=== PATIENT | female | born 1970 | race Caucasian/White ===

== ENCOUNTER → 2016-04-30 | Outpatient (REF) | payer BC ==
[~2016-04-30] MED LIST: CIPR500T89 PO; HCTZ PO; LABE20TAB PO; PRIL40CA PO; VICO5TAB PO
[2016-04-30 12:20] LABS: ALBUMIN 3.4 GM/DL (3.2-5.2); ALBUMIN/GLOBULIN RATIO 1.03 (1.00-1.93); ALKALINE PHOSPHATASE 122 U/L (45-117); ALT/SGPT 34 U/L (12-78); ANION GAP 9 MEQ/L (8-16); AST/SGOT 12 U/L (15-37); BILIRUBIN,TOTAL 0.4 MG/DL (0.2-1.0); BLOOD UREA NITROGEN 11 MG/DL (7-18); CALCIUM LEVEL 9.1 MG/DL (8.5-10.1); CARBON DIOXIDE LEVEL 30 MEQ/L (21-32); CHLORIDE LEVEL 103 MEQ/L (98-107); CHOLESTEROL LEVEL 161 MG/DL (<200); CREATININE FOR GFR 0.71 MG/DL (0.55-1.02); FREE T4 1.15 NG/DL (0.76-1.46); GLOMERULAR FILTRATION RATE > 60.0 (>58); GLUCOSE, FASTING 100 MG/DL (70-105); POTASSIUM SERUM 3.6 MEQ/L (3.5-5.1); SODIUM LEVEL 142 MEQ/L (136-145); TOTAL PROTEIN 6.7 GM/DL (6.4-8.2); TRIGLYCERIDES LEVEL 101 MG/DL (<150)
[2016-04-30 12:45] LABS: BASO % 0.3 % (0.0-1.0); EOS # 0.2 K/mm3 (0.0-0.50); LARGE UNSTAINED CELL # 0.3 K/mm3 (0.0-0.4); LARGE UNSTAINED CELL % 2.3 % (0.0-4.0); LYMPH # 2.9 K/mm3 (1.5-4.5); LYMPH % 24.2 % (24.0-44.0); MEAN CORPUSCULAR HEMOGLOBIN 28.8 pg (27.0-33.0); MEAN CORPUSCULAR HGB CONC 33.7 g/dl (32.0-36.5); MEAN CORPUSCULAR VOLUME 85.4 fl (80.0-96.0); MONO # 0.7 K/mm3 (0.0-0.8); MONO % 5.7 % (0.0-5.0); NEUTROPHILS # 7.7 K/mm3 (1.8-7.7); NEUTROPHILS % 65.4 % (36.0-66.0); PLATELET COUNT, AUTOMATED 370 k/mm3 (150-450); WHITE BLOOD COUNT 11.8 K/mm3 (4.0-10.0)
== END ==
LOC: M LABDRAW1 11:33
PROVIDERS: ATTEND Emergency Medicine
DX: I10 Essential (primary) hypertension (principal); E05.90 Thyrotoxicosis, unspecified without thyrotoxic crisis or storm; E78.5 Hyperlipidemia, unspecified

== ENCOUNTER → 2017-04-19 | Outpatient (REF) | payer BC ==
[2017-04-19 13:22] LABS: FREE T4 1.29 NG/DL (0.76-1.46)
[2017-04-20 12:18] LABS: THYROID PEROXIDASE ANTIBODY 33.3 U/ML (<60.0)
== END ==
LOC: M LABDRAW1 10:48
DX: R94.6 Abnormal results of thyroid function studies (principal)
CPT/HCPCS: 84439

== ENCOUNTER → 2017-05-04 | Outpatient (CLI) | payer BC | LOC: M RAD 08:18 | DX: R94.6 Abnormal results of thyroid function studies (principal) | CPT/HCPCS: 78012 ==

== ENCOUNTER 2020-09-27 10:40 | Emergency (ER) | payer BC ==
[~2020-09-27] VITALS: Ht 160 cm; Wt 106.8 kg
[~2020-09-27 10:40] MED LIST changes: -HCTZ PO; +LABE200T13 PO; -LABE20TAB PO; +[UNRECOGNIZED DRUG - CODE] PO; +medroxyPROGESTERone 5MG TABLET PO SCH
[2020-09-27] MEDS ORDERED: ATOR1TAB19 (10:52)
[2020-09-27] MEDS ORDERED: ATEN50TA9 (10:52)
[2020-09-27] MEDS ORDERED: SPIR-10 (10:52)
[2020-09-27 11:24] LABS: BASO # 0.1 10^3/uL (0.0-0.2); BASO % 0.3 % (0.0-1.0); EOS # 0.2 10^3/uL (0.0-0.5); EOS % 1.6 % (0.0-3.0); HEMATOCRIT 29.9 % (36.0-47.0); HEMOGLOBIN 9.7 g/dl (12.0-15.5); LYMPH # 3.2 10^3/uL (1.5-5.0); LYMPH % 21.7 % (24.0-44.0); MEAN CORPUSCULAR HEMOGLOBIN 26.9 pg (27.0-33.0); MEAN CORPUSCULAR HGB CONC 32.4 g/dl (32.0-36.5); MEAN CORPUSCULAR VOLUME 82.8 fl (80.0-96.0); MONO # 1.2 10^3/uL (0.0-0.8); MONO % 8.3 % (2.0-8.0); NEUTROPHILS # 9.9 10^3/uL (1.5-8.5); NEUTROPHILS % 67.6 % (36.0-66.0); PLATELET COUNT, AUTOMATED 407 10^3/uL (150-450); RED BLOOD COUNT 3.61 10^6/uL (4.00-5.40); WHITE BLOOD COUNT 14.7 10^3/uL (4.0-10.0)
[2020-09-27 11:53] LABS: BLOOD UREA NITROGEN 12 MG/DL (7-18); CALCIUM LEVEL 8.7 MG/DL (8.5-10.1); CARBON DIOXIDE LEVEL 31 MEQ/L (21-32); CHLORIDE LEVEL 104 MEQ/L (98-107); CK-MB VALUE MASS 1.3 NG/ML (<3.6); CPK CREATINE PHOSPHOKINASE 35 U/L (26-192); GLOMERULAR FILTRATION RATE > 60.0 (>58); GLUCOSE, FASTING 110 MG/DL (70-100); MB/CK RELATIVE INDEX 3.71 (< OR =4); POTASSIUM SERUM 3.6 MEQ/L (3.5-5.1); SODIUM LEVEL 139 MEQ/L (136-145); TROPONIN I < 0.02 NG/ML (< 0.10)
[2020-09-27 13:01] LABS: HCG, SERUM QUALITATIVE NEGATIVE (NEGATIVE)
[2020-09-27] MEDS ORDERED: NS 1,000 ML IV ONE (13:20)
--- NOTE | 2020-09-27 13:44 | REP ---
INDICATION: severe bleeding, passing large clots. COMPARISON: CT 01/10/2012 TECHNIQUE: Transabdominal endovaginal probes with grayscale and color Doppler interrogation. Technologist notes indicate the exam was technically very challenging due to body habitus considerations. FINDINGS: The bladder is under filled for this examination measuring only 3 x 2.1 by 5.2 cm. Uterus is anteverted measuring 7.4 x 5.1 x 6.3 cm. There is a prominent hypoechoic uterine mass 4.5 x 4.3 x 3.4 cm that appears to be subserosal displacing the endometrium or within the endometrium near the fundus and upper body of the uterus. There is another hypoechoic focus in the fundus of the uterus suggesting a fibroid at 2.1 x 1.9 x 1.7 cm. No other discrete uterine abnormality. There is no fluid in the cul-de-sac. The right ovary is 3.2 x 2.4 x 2.4 cm. It has a 1.9 x 1.8 x 1.7 cm dominant follicle (cyst defined at 2.5 cm). Doppler tracing shows resistive index 0.49 with normal color flow. The left ovary is 3.9 x 2.6 x 2.6 cm. It has a dominant follicle about 1.6 cm in greatest diameter. Doppler tracing shows resistive index 0.61 with normal color Doppler flow. No free fluid adjacent to either ovary. IMPRESSION: 1. A large 4.5 x 3.4 x 4.3 cm hypoechoic mass either subserosal fibroid or endometrial lesion distorting/displacing the endometrial stripe in the body and fundus of the uterus. Another smaller hypoechoic focus 2.1 x 1.9 cm seen in the fundus. No definite fluid at this time in the endometrial cavity. 2. Right ovary with dominant follicle 1.9 x 1.8 cm with normal blood flow and no evidence for torsion. 3. Left ovary with a 1.6 cm dominant follicle and normal Doppler tracing, no evidence for torsion. 4. No pelvic free fluid. <Electronically signed by Manish Glasgow > 09/27/20 [id number]
[2020-09-27] MEDS ORDERED: ACETAMINOPHEN 500 MG TAB PO ONE (14:15)
[2020-09-27] MEDS ORDERED: PROV10TA PO (14:49)
[2020-09-27] MEDS ORDERED: FERR325T3 PO (14:49)
[2020-09-27 14:50] VITALS: BP 126/63
--- NOTE | 2020-09-28 22:00 | ECGEPIP ---
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 Order Number: [id number] Reading MD: Ely Subramanian Measurements Intervals Stark Rate: 71 P: 27 AL: 148 QRS: 16 QRSD: 88 T: 27 QT: 438 QTc: 475 Interpretive Statements Normal sinus rhythm NSTTW abnormalities No prior Electronically Signed on 09-28-2020 21:59:41 EDT by Ely Subramanian
== END 2020-09-27 15:39 | disposition home or self-care (01) ==
LOC: M ED 10:40
DX: N93.8 Other specified abnormal uterine and vaginal bleeding (principal); D25.9 Leiomyoma of uterus, unspecified; D64.9 Anemia, unspecified; I10 Essential (primary) hypertension; E78.5 Hyperlipidemia, unspecified; Z87.59 Personal history of other complications of pregnancy, childbirth and the puerperium; Z88.2 Allergy status to sulfonamides; Z88.5 Allergy status to narcotic agent; Z88.7 Allergy status to serum and vaccine

== ENCOUNTER → 2020-11-18 | Outpatient (REF) | payer BC ==
[~2020-11-18] MED LIST changes: +ATEN50TA9; +ATOR1TAB19; +FERR325T3 PO; +PROV10TA PO; +SPIR-10; -medroxyPROGESTERone 5MG TABLET PO SCH
== END ==
LOC: M SFHCWAGY 10:10
PROVIDERS: ATTEND Obstetrics & Gynecology
DX: N93.9 Abnormal uterine and vaginal bleeding, unspecified (principal)

== ENCOUNTER → 2020-12-03 | Outpatient (CLI) | payer BC ==
[~2020-12-03] MED LIST changes: -ATEN50TA9; +ATEN50TA9 PO; -ATOR1TAB19; +ATOR1TAB19 PO; +IBUP200C28 PO; -SPIR-10; +SPIR-10 PO
== END ==
LOC: M LABSMTC 09:33
PROVIDERS: ATTEND Anesthesiology
DX: Z01.818 Encounter for other preprocedural examination (principal); Z11.52 Encounter for screening for COVID-19

== ENCOUNTER 2020-12-08 07:44 | Day surgery (SDC) | payer BC ==
[~2020-12-08] VITALS: Ht 157.5 cm; Wt 105.5 kg
[~2020-12-08 07:44] MED LIST changes: +LR 1,000 ML IV ONE; +ceFAZolin SOD 1 GM in D5W MINI-BAG PLUS 50 ML IV ONE
[2020-12-08 08:49] LABS: MEAN CORPUSCULAR HEMOGLOBIN 26.1 pg (27.0-33.0); MEAN CORPUSCULAR HGB CONC 32.4 g/dl (32.0-36.5); MEAN CORPUSCULAR VOLUME 80.6 fl (80.0-96.0); PLATELET COUNT, AUTOMATED 350 10^3/uL (150-450); RED BLOOD COUNT 4.59 10^6/uL (4.00-5.40); WHITE BLOOD COUNT 9.2 10^3/uL (4.0-10.0)
[2020-12-08 09:14] LABS: HCG, SERUM QUALITATIVE NEGATIVE (NEGATIVE)
[2020-12-08] MEDS ORDERED: LIDOCAINE 2% 100MG/5ML SDV (FOR ANES.) As Ordered ONE (09:36)
[2020-12-08] MEDS ORDERED: fentaNYL 100 MCG/2 ML INJECTION (J3010) As Ordered ONE (09:36)
[2020-12-08] MEDS ORDERED: ROCURONIUM BROMIDE 50 MG/5 ML VIAL As Ordered ONE ×2 (09:36→11:58)
[2020-12-08] MEDS ORDERED: METOCLOPRAMIDE INJ 10MG/2ML VIAL (J2765 PER 1) As Ordered ONE (09:36)
[2020-12-08] MEDS ORDERED: ONDANSETRON 4MG/2ML VIAL As Ordered ONE (09:36)
[2020-12-08] MEDS ORDERED: propofoL 200 MG/20 ML VIAL As Ordered ONE (09:36)
[2020-12-08] MEDS ORDERED: dexameTHASONE 4 MG/ML 1ML VIAL (J1100 PER 1MG) As Ordered ONE (09:36)
[2020-12-08] MEDS ORDERED: MIDAZOLAM INJ 2MG/2ML VIAL (J2250 PER 1MG) As Ordered ONE (09:37)
[2020-12-08] MEDS ORDERED: BUPIVACAINE HCL 0.25% 30ML VIAL As Ordered ONE (10:52)
[2020-12-08] MEDS ORDERED: METHYLENE BLUE 0.5% (5MG/ML) 10 ML AMP (PROVAYBLUE) As Ordered ONE (10:52)
[2020-12-08] MEDS ORDERED: SUGAMMADEX SODIUM 500 MG/5 ML VIAL (BRIDION) As Ordered ONE (11:45)
[2020-12-08] MEDS ORDERED: KETOROLAC 60MG 2ML VIAL As Ordered ONE (11:45)
[2020-12-08] MEDS ORDERED: ACETAMINOPHEN 1000MG 100ML IV BTL (OFIRMEV) (J0131 PER 10MG) As Ordered ONE (11:45)
[2020-12-08] MEDS ORDERED: HYDROmorphone HCL 2 MG/ML 1ML VIAL As Ordered ONE (11:54)
[2020-12-08] MEDS ORDERED: ONDANSETRON 4MG/2ML VIAL IV PRN ×2 (13:35→14:00)
[2020-12-08] MEDS ORDERED: PERCOCET 5MG/325MG TAB PO PRN (13:35)
--- NOTE | 2020-12-08 13:41 | ROOPDOC ---
[facility] Report Of Operation Report of Operation DATE OF PROCEDURE: 12/08/2020 PREPROCEDURE DIAGNOSES: Abnormal uterine bleeding, chronic pelvic pain, due to uterine leiomyomas POSTPROCEDURE DIAGNOSES: Same. PROCEDURE: Robotic-assisted total laparoscopic hysterectomy, bilateral salpingectomy, left ovarian cystectomy, cystoscopy SURGEON: Tommie Skinner D.O. FACOG DIRECTOR EXECUTIVE COMMUNICATIONS: Kathya Mcleod ANESTHESIA: General endotracheal. ESTIMATED BLOOD LOSS: Approximately 50 mL. FLUIDS REPLACED: 1300 mL LR URINE OUTPUT: 250 mL COMPLICATIONS: None. FINDINGS: Normal-appearing ovaries bilaterally with the exception of a left simple appearing ovarian cyst. Uterus was approximately 10-12 centimeters in greatest dimension. Cystoscopy: Bilateral ureteral orifice efflux, no bladder injury/suture material. PREOPERATIVE ANTIBIOTIC PROPHYLAXIS: Ancef 2 g IV 1. SPECIMEN(S): Uterus w/ cervix, bilateral fallopian tubes, left ovarian cystic wall DESCRIPTION OF PROCEDURE: The patient was counseled, consented on the respective benefits, indications, alternatives of procedure. Informed consent was obtained. She was taken to the operating room with an IV running. She was placed on the operating table in dorsal supine position. Gen. anesthesia was administered and the airway was secured without any difficulty. She was placed in the low lithotomy position. She was prepared and draped in the normal sterile fashion. A time out was performed per protocol. A Greene catheter was placed under sterile conditions. A sterile speculum was placed resulting in good visualization of the cervix. A single-tooth tenaculum was used to grasp the anterior lip cervix. The cervix was sequentially dilated with Filipe dilators. A V-Care uterine manipulator was placed without any difficulty. The single-tooth tenaculum was removed, as well as the speculum. A sterile glove switch was performed. Attention was turned to the abdomen. A 2mm incision was made in the umbilicus, and through this incision a Veress needle was inserted into the intraperitoneal cavity. Intraperitoneal placement was confirmed with ease of flow of normal saline, positive drop test, no return on aspiration, and an opening pressure of less than 10 mmHg upon initial insufflation. The abdomen was insufflated with 2 L of gas. The Veress needle was removed. A supraumbilical 8 mm incision was made. Through this incision, the robotic trochar/cannula was inserted into the intraperitoneal cavity under direct visualization. No incidental bleeding nor injury was noted. Patient was placed in 30 Trendelenburg. The right and left trocars/cannulas were placed on both the right and left side through 8 mm incisions, guided by laparoscopic visualization. No incidental bleeding nor injury was noted. The robot was do cked in typical fashion. The instruments were inserted, guided by laparoscopic visualization. My attention was turned to the robotic console. Using the vessel sealer device, the right and left fallopian tubes were amputated. The fallopian tubes were br ought through the assist-port cannula without any difficulty. The right utero- ovarian ligament and right round ligament were sequentially clamped, coagulated and transected with the vessel sealer device. The vesicouterine peritoneum was dissected with the vessel sealer device to create the bladder flap, thus mobilizing the lower uterine segment and cervix off of the bladder. The right uterine vasculature was sequentially clamped, coagulated and transected above the colpotomy cup. The left utero-ovarian ligament and left round ligament were sequentially clamped, coagulated and transected with the vessel sealer device. The remainder of the bladder flap was dissected using the vessel sealer device and blunt dissection. The left uterine vasculature was sequentially clamped, coagulated and transected above the colpotomy cup. The outline of the entire V- care colpotomy cup was able to be delineated. Excellent blanching of the uterus was noted. A circumferential colpotomy was performed using the da Seth monop olar paul, following the contour of the cup. The amputated cervix and uterus were brought through the colpotomy into and out of the vagina, intact as one unit. The colpotomy was closed with the V-lock barbed suture in running fashion, thus creating the vaginal cuff. Excellent hemostasis was noted throughout the steps above. The left ovarian cystic wall was excised with the ve ssel sealer instrument. The cystic wall was removed through the cannula. Excellent hemostasis was noted. Apryl was placed over the vaginal cuff and both pelvic sidewalls to ensure hemostasis. The instruments were removed from the abdomen and the robot was un-docked. The gas was released from the abdomen and the patient was taken out of Trendelenburg. I re-scrubbed, and attention was turned to the pelvis. The Greene catheter was removed. The cystoscope was placed transurethrally into the bladder and normal saline was instilled. No bladder injury/suture material was noted. IV methylene blue had been administered by anesthesia and bilateral UO efflux was confirmed. The fluid was drained out of the bladder through the cystoscope device, then the cystoscope was removed. The vagina was copiously irrigated. A sterile digital vaginal exam revealed no significant bleeding and an intact vaginal cuff. A sterile glove switch was performed. The da Seth cannulas were removed. The skin incisions were closed with 4-0 Monocryl in subcuticular fashion. Sponge, needle and instrument counts were correct per protocol. The patient tolerated the entire procedure very well. She was transferred to the PACU in good and stable condition. DO ONI Dudley JONATHAN R. DO Dec 08, 2020 13:41
[2020-12-08] MEDS ORDERED: HYDROMORPHONE HCL 0.5 MG/ 0.5 ML SYRINGE (J1170 PER 1) IV PRN (14:00)
[2020-12-08] MEDS ORDERED: LR 1,000 ML IV SCH (14:00)
[2020-12-08] MEDS ORDERED: fentaNYL 100 MCG/2 ML INJECTION (J3010) IV PRN (14:00)
[2020-12-08] MEDS ORDERED: METOCLOPRAMIDE INJ 10MG/2ML VIAL (J2765 PER 1) IV PRN (14:00)
[2020-12-08] MEDS: oxyCODONE 5MG TAB PO PRN ×2 (14:02→14:35)
[2020-12-08 14:40] VITALS: BP 132/76
[2020-12-08 15:10] VITALS: BP 129/72
[2020-12-08 15:40] VITALS: BP 123/68
[2020-12-08] MEDS: DOCUSATE SODIUM 100MG CAPSULE PO SCH ×2 (15:40→20:44)
[2020-12-08] MEDS: ATORVASTATIN 10 MG TAB PO SCH (15:40)
[2020-12-08] MEDS: LR 1,000 ML IV SCH ×2 (15:41→23:38)
[2020-12-08 16:40] VITALS: BP 119/64
[2020-12-08] MEDS: KETOROLAC 30 MG/ML 1ML VIAL IV SCH (18:07)
[2020-12-08 18:40] VITALS: BP 117/62
[2020-12-08 19:40] VITALS: BP 115/60
[2020-12-08] MEDS: PERCOCET 5MG/325MG TAB PO PRN (20:44)
[2020-12-09] MEDS: KETOROLAC 30 MG/ML 1ML VIAL IV SCH ×2 (00:36→06:32)
[2020-12-09 02:00] VITALS: BP 110/56
[2020-12-09] MEDS: PERCOCET 5MG/325MG TAB PO PRN ×2 (03:05→11:08)
[2020-12-09 06:00] VITALS: BP 103/56
[2020-12-09] MEDS: LR 1,000 ML IV SCH (07:32)
[2020-12-09 08:45] VITALS: BP 115/52
[2020-12-09] MEDS: ATORVASTATIN 10 MG TAB PO SCH (08:45)
[2020-12-09] MEDS: DOCUSATE SODIUM 100MG CAPSULE PO SCH (08:45)
[2020-12-09] MEDS ORDERED: CHLORTHALIDONE 25 MG TAB PO SCH (09:00)
[2020-12-09] MEDS ORDERED: atenoloL 50 MG TAB PO SCH (09:00)
[2020-12-09 10:14] VITALS: BP 126/59
[2020-12-09] MEDS ORDERED: IBUP80TA PO (10:49)
[2020-12-09] MEDS ORDERED: PERCOCET PO (10:49)
[2020-12-09] MEDS ORDERED: IBUPROFEN 800 MG TAB PO SCH (15:00)
== END 2020-12-09 12:05 | disposition home or self-care (01) ==
LOC: M SDC 07:44 → M MSPAV 14:44 → M SDC 12-09 12:05
PROVIDERS: ATTEND Obstetrics & Gynecology
DX: N93.9 Abnormal uterine and vaginal bleeding, unspecified (principal); N83.202 Unspecified ovarian cyst, left side; D25.9 Leiomyoma of uterus, unspecified; I10 Essential (primary) hypertension; E78.5 Hyperlipidemia, unspecified; L40.0 Psoriasis vulgaris; E04.1 Nontoxic single thyroid nodule; R06.83 Snoring; Z79.899 Other long term (current) drug therapy; Z88.2 Allergy status to sulfonamides; Z88.5 Allergy status to narcotic agent; Z88.7 Allergy status to serum and vaccine
CPT/HCPCS: 36415; 58571; 58662; 84703; 85027; 86850; 86900; 86901; 88305; 88307; J0131; J0690; J1100; J1170; J1885; J2250; J2405; J2765; J3010; Q9968; S2900

== ENCOUNTER 2021-03-20 02:27 | Day surgery (SDC) | payer BC ==
[~2021-03-20] VITALS: Ht 157.5 cm; Wt 109.3 kg
[~2021-03-20 02:27] MED LIST changes: +IBUP80TA PO; -LR 1,000 ML IV ONE; +PERCOCET PO; -ceFAZolin SOD 1 GM in D5W MINI-BAG PLUS 50 ML IV ONE
[2021-03-20 03:53] LABS: BASO # 0.1 10^3/uL (0.0-0.2); BASO % 0.3 % (0.0-1.0); HEMATOCRIT 40.9 % (36.0-47.0); HEMOGLOBIN 13.8 g/dl (12.0-15.5); LYMPH # 1.4 10^3/uL (1.5-5.0); MEAN CORPUSCULAR HGB CONC 33.7 g/dl (32.0-36.5); MEAN CORPUSCULAR VOLUME 79.9 fl (80.0-96.0); MONO # 1.1 10^3/uL (0.0-0.8); MONO % 3.9 % (2.0-8.0); NEUTROPHILS # 24.7 10^3/uL (1.5-8.5); NEUTROPHILS % 90.3 % (36.0-66.0); PLATELET COUNT, AUTOMATED 389 10^3/uL (150-450); RED BLOOD COUNT 5.12 10^6/uL (4.00-5.40); WHITE BLOOD COUNT 27.4 10^3/uL (4.0-10.0)
[2021-03-20] MEDS ORDERED: ONDANSETRON 4MG/2ML VIAL IV ONE (04:10)
[2021-03-20] MEDS: HYDROMORPHONE HCL 0.5 MG/ 0.5 ML SYRINGE (J1170 PER 1) IV PRN ×2 (04:24→07:32)
[2021-03-20 04:25] LABS: CK-MB VALUE MASS < 1.0 NG/ML (<3.6); CPK CREATINE PHOSPHOKINASE 43 U/L (26-192); MB/CK RELATIVE INDEX 2.33 (< OR =4)
[2021-03-20 04:36] LABS: ALBUMIN 3.6 GM/DL (3.2-5.2); ALT/SGPT 44 U/L (12-78); BILIRUBIN,DIRECT < 0.1 MG/DL (0.0-0.2); BILIRUBIN,TOTAL 0.4 MG/DL (0.2-1.0); BLOOD UREA NITROGEN 12 MG/DL (7-18); CALCIUM LEVEL 9.3 MG/DL (8.5-10.1); CARBON DIOXIDE LEVEL 26 MEQ/L (21-32); CHLORIDE LEVEL 103 MEQ/L (98-107); CREATININE FOR GFR 0.72 MG/DL (0.55-1.30); GLOMERULAR FILTRATION RATE > 60.0 (>58); GLUCOSE, FASTING 127 MG/DL (70-100); LIPASE 58 U/L (73-393); SODIUM LEVEL 138 MEQ/L (136-145); TOTAL PROTEIN 7.3 GM/DL (6.4-8.2)
[2021-03-20] MEDS ORDERED: ISOVUE-370 76% 100ML VIAL As Ordered ONE (04:43)
[2021-03-20] MEDS ORDERED: PIPERACILLIN/TAZOBACTAM SOD 3.375 GM in D5W MINI-BAG PLUS 50 ML IV ONE (05:30)
[2021-03-20] MEDS ORDERED: ATEN50TA9 PO (06:24)
[2021-03-20] MEDS ORDERED: SPIR-10 PO (06:24)
[2021-03-20] MEDS ORDERED: ATOR1TAB19 PO (06:24)
[2021-03-20] MEDS ORDERED: ACET-907 PO (06:24)
[2021-03-20] MEDS ORDERED: HOME MED LIST COMPLETE! XX SCH (06:25)
[2021-03-20 06:54] LABS: RSV AMPLIFICATION NEGATIVE (NEGATIVE)
[2021-03-20] MEDS ORDERED: AMPICILLIN SOD/SULBACTAM SOD 3 GM in D5W MINI-BAG PLUS 100 ML IV SCH (07:45)
[2021-03-20] MEDS: AMPICILLIN SOD/SULBACTAM SOD 3 GM in D5W MINI-BAG PLUS 100 ML IV SCH ×3 (08:46→20:56)
[2021-03-20] MEDS: PANTOPRAZOLE 40MG VIAL (C9113 PER 1) IV SCH (08:46)
[2021-03-20] MEDS: LR 1,000 ML IV SCH ×2 (08:46→20:57)
[2021-03-20] MEDS: KETOROLAC 30 MG/ML 1ML VIAL IV PRN ×2 (08:47→20:57)
[2021-03-20] MEDS ORDERED: LIDOCAINE 1% SDV 30ML VIAL As Ordered ONE (13:44)
[2021-03-20] MEDS ORDERED: BUPIVACAINE HCL 0.25% 30ML VIAL As Ordered ONE (13:45)
[2021-03-20] MEDS ORDERED: MIDAZOLAM INJ 2MG/2ML VIAL (J2250 PER 1MG) As Ordered ONE (15:05)
[2021-03-20] MEDS ORDERED: SUGAMMADEX SODIUM 500 MG/5 ML VIAL (BRIDION) As Ordered ONE (15:06)
[2021-03-20] MEDS ORDERED: LIDOCAINE 2% 100MG/5ML SDV (FOR ANES.) As Ordered ONE (15:06)
[2021-03-20] MEDS ORDERED: ONDANSETRON 4MG/2ML VIAL As Ordered ONE (15:06)
[2021-03-20] MEDS ORDERED: dexameTHASONE 4 MG/ML 1ML VIAL (J1100 PER 1MG) As Ordered ONE (15:06)
[2021-03-20] MEDS ORDERED: ROCURONIUM BROMIDE 50 MG/5 ML VIAL As Ordered ONE (15:06)
[2021-03-20] MEDS ORDERED: propofoL 200 MG/20 ML VIAL As Ordered ONE ×2 (15:06→18:46)
[2021-03-20] MEDS ORDERED: fentaNYL 250 MCG/5 ML INJECTION (J3010) As Ordered ONE (15:06)
[2021-03-20] MEDS ORDERED: ePHEDrine SULFATE 25 MG/5 ML(5MG/ML) SYRINGE As Ordered ONE (18:00)
[2021-03-20] MEDS ORDERED: PHENYLephrine 500MCG 5ML (100MCG/ML) SYRINGE As Ordered ONE (18:00)
[2021-03-20] MEDS ORDERED: ACETAMINOPHEN 1000MG 100ML IV BTL (OFIRMEV) (J0131 PER 10MG) As Ordered ONE (18:26)
[2021-03-20] MEDS ORDERED: LABETALOL 100MG/20ML VIAL As Ordered ONE (18:35)
[2021-03-20] MEDS ORDERED: KETOROLAC 60MG 2ML VIAL As Ordered ONE (18:58)
[2021-03-20] MEDS ORDERED: PERCOCET 5MG/325MG TAB PO PRN ×3 (19:20→19:35)
[2021-03-20] MEDS ORDERED: ONDANSETRON 4MG/2ML VIAL IV PRN (19:35)
[2021-03-20] MEDS ORDERED: LR 1,000 ML IV SCH (19:35)
[2021-03-20] MEDS ORDERED: fentaNYL 100 MCG/2 ML INJECTION (J3010) IV PRN (19:35)
[2021-03-20 20:20] VITALS: BP 128/73
[2021-03-20 20:45] VITALS: BP 130/75
[2021-03-20 21:45] VITALS: BP 129/75
[2021-03-20 22:45] VITALS: BP 112/60
[2021-03-20 23:45] VITALS: BP 118/66
[2021-03-21 00:43] VITALS: BP 107/51
[2021-03-21 02:00] VITALS: BP 116/50
[2021-03-21] MEDS: AMPICILLIN SOD/SULBACTAM SOD 3 GM in D5W MINI-BAG PLUS 100 ML IV SCH ×2 (02:02→09:34)
[2021-03-21] MEDS: KETOROLAC 30 MG/ML 1ML VIAL IV PRN ×2 (04:51→12:25)
[2021-03-21 06:00] VITALS: BP 112/59
[2021-03-21 07:09] LABS: BASO % 0.1 % (0.0-1.0); HEMATOCRIT 36.2 % (36.0-47.0); LYMPH # 0.9 10^3/uL (1.5-5.0); LYMPH % 6.2 % (24.0-44.0); MEAN CORPUSCULAR HGB CONC 33.1 g/dl (32.0-36.5); MEAN CORPUSCULAR VOLUME 81.5 fl (80.0-96.0); MONO # 0.7 10^3/uL (0.0-0.8); MONO % 4.9 % (2.0-8.0); NEUTROPHILS # 12.9 10^3/uL (1.5-8.5); NEUTROPHILS % 88.1 % (36.0-66.0); PLATELET COUNT, AUTOMATED 303 10^3/uL (150-450); RED BLOOD COUNT 4.44 10^6/uL (4.00-5.40); WHITE BLOOD COUNT 14.7 10^3/uL (4.0-10.0)
[2021-03-21 07:32] LABS: BLOOD UREA NITROGEN 12 MG/DL (7-18); C REACTIVE PROTEIN QUANTITATIV 2.81 MG/DL (0.00-0.30); CALCIUM LEVEL 8.7 MG/DL (8.5-10.1); CARBON DIOXIDE LEVEL 30 MEQ/L (21-32); CHLORIDE LEVEL 103 MEQ/L (98-107); CREATININE FOR GFR 0.52 MG/DL (0.55-1.30); GLOMERULAR FILTRATION RATE > 60.0 (>58); GLUCOSE, FASTING 112 MG/DL (70-100); POTASSIUM SERUM 3.5 MEQ/L (3.5-5.1); SODIUM LEVEL 140 MEQ/L (136-145)
[2021-03-21] MEDS ORDERED: atenoloL 50 MG TAB PO SCH (09:00)
[2021-03-21] MEDS ORDERED: CHLORTHALIDONE 25 MG TAB PO SCH (09:00)
[2021-03-21] MEDS ORDERED: SPIRONOLACTONE 25 MG TAB PO SCH (09:00)
[2021-03-21] MEDS ORDERED: ATORVASTATIN 10 MG TAB PO SCH (09:00)
[2021-03-21] MEDS: PANTOPRAZOLE 40MG VIAL (C9113 PER 1) IV SCH (09:34)
[2021-03-21 09:35] VITALS: BP 120/62
[2021-03-21] MEDS ORDERED: METR375C3 PO (09:44)
[2021-03-21] MEDS ORDERED: AMOXTAB PO (09:44)
[2021-03-21] MEDS ORDERED: PERCOCET PO (09:44)
== END 2021-03-21 13:00 | disposition home or self-care (01) ==
LOC: M ED 02:27 → M SDC 02:28 → M MS5PR 20:20 → M SDC 03-21 13:00
PROVIDERS: ATTEND Surgery
DX: K35.890 Other acute appendicitis without perforation or gangrene (principal); I10 Essential (primary) hypertension; E78.5 Hyperlipidemia, unspecified; E66.9 Obesity, unspecified; Z68.41 Body mass index [BMI] 40.0-44.9, adult; R06.83 Snoring; L40.9 Psoriasis, unspecified; Z79.899 Other long term (current) drug therapy; Z88.2 Allergy status to sulfonamides; Z88.5 Allergy status to narcotic agent; Z88.7 Allergy status to serum and vaccine
CPT/HCPCS: 36415; 44970; 74177; 80048; 80076; 81001; 82550; 82553; 83605; 83690; 84484; 85025; 86140; 87086; 87631; 88304; 93005; 93041; 96361; 96365; 96366; 96367; 96375; 96376; 99285; C9113; J0131; J1100; J1170; J1885; J2250; J2405; J2543; J3010; Q9967

== ENCOUNTER → 2021-03-30 | Outpatient (CLI) | payer BC ==
[~2021-03-30] MED LIST changes: +ACET-907 PO; +AMOXTAB PO; +METR375C3 PO
[2021-03-30 11:30] LABS: ALBUMIN 3.5 GM/DL (3.2-5.2); ALT/SGPT 76 U/L (12-78); BILIRUBIN,TOTAL 0.4 MG/DL (0.2-1.0); BLOOD UREA NITROGEN 12 MG/DL (7-18); CALCIUM LEVEL 9.9 MG/DL (8.5-10.1); CARBON DIOXIDE LEVEL 32 MEQ/L (21-32); CHLORIDE LEVEL 99 MEQ/L (98-107); CHOLESTEROL LEVEL 158 MG/DL (<200); CHOLESTEROL RISK RATIO 3.511 (<5); GLOMERULAR FILTRATION RATE > 60.0 (>58); GLUCOSE, FASTING 84 MG/DL (70-100); HDL CHOLESTEROL 45 MG/DL (>40); LDL CHOLESTEROL 86 MG/DL (<100); NON-HDL-C 113 MG/DL; POTASSIUM SERUM 3.3 MEQ/L (3.5-5.1); SODIUM LEVEL 138 MEQ/L (136-145); TOTAL PROTEIN 7.2 GM/DL (6.4-8.2); TRIGLYCERIDES LEVEL 135 MG/DL (<150)
== END ==
LOC: M PLALAB 08:37
PROVIDERS: ATTEND Nurse Practitioner Family
DX: E78.5 Hyperlipidemia, unspecified (principal)

== ENCOUNTER → 2021-09-25 | Outpatient (CLI) | payer BC ==
[2021-09-25 13:20] LABS: BASO % 0.4 % (0.0-1.0); EOS # 0.3 10^3/uL (0.0-0.5); EOS % 2.4 % (0.0-3.0); HEMOGLOBIN 13.6 g/dl (12.0-15.5); LYMPH # 2.7 10^3/uL (1.5-5.0); LYMPH % 23.5 % (24.0-44.0); MEAN CORPUSCULAR HEMOGLOBIN 29.3 pg (27.0-33.0); MEAN CORPUSCULAR HGB CONC 34.9 g/dl (32.0-36.5); MEAN CORPUSCULAR VOLUME 84.1 fl (80.0-96.0); MONO # 0.8 10^3/uL (0.0-0.8); MONO % 6.8 % (2.0-8.0); NEUTROPHILS # 7.5 10^3/uL (1.5-8.5); NEUTROPHILS % 66.5 % (36.0-66.0); PLATELET COUNT, AUTOMATED 327 10^3/uL (150-450); RED BLOOD COUNT 4.64 10^6/uL (4.00-5.40); WHITE BLOOD COUNT 11.3 10^3/uL (4.0-10.0)
[2021-09-25 13:33] LABS: ALBUMIN 3.3 GM/DL (3.2-5.2); ALT/SGPT 33 U/L (12-78); BILIRUBIN,DIRECT 0.2 MG/DL (0.0-0.2); BILIRUBIN,TOTAL 0.5 MG/DL (0.2-1.0); BLOOD UREA NITROGEN 10 MG/DL (7-18); CALCIUM LEVEL 9.5 MG/DL (8.5-10.1); CARBON DIOXIDE LEVEL 27 MEQ/L (21-32); CHLORIDE LEVEL 104 MEQ/L (98-107); CREATININE FOR GFR 0.62 MG/DL (0.55-1.30); GLOMERULAR FILTRATION RATE > 60.0 (>51); GLUCOSE, FASTING 178 MG/DL (70-100); PHOSPHORUS LEVEL 2.9 MG/DL (2.5-4.9); POTASSIUM SERUM 3.3 MEQ/L (3.5-5.1); SODIUM LEVEL 139 MEQ/L (136-145); TOTAL PROTEIN 6.4 GM/DL (6.4-8.2)
[2021-09-25 14:50] LABS: HEPATITIS B SURFACE ANTIBODY POSITIVE (POSITIVE)
[2021-09-25 15:30] LABS: HIV 1&2 SCREEN CENTAUR NEGATIVE (NEGATIVE)
== END ==
LOC: M PLALAB 10:02
PROVIDERS: ATTEND Family Medicine
DX: L40.0 Psoriasis vulgaris (principal); Z51.81 Encounter for therapeutic drug level monitoring; Z79.899 Other long term (current) drug therapy

== ENCOUNTER → 2022-04-02 | Outpatient (CLI) | payer BC ==
[2022-04-02 14:56] LABS: BASO % 0.3 % (0.0-1.0); EOS # 0.2 10^3/uL (0.0-0.5); EOS % 1.5 % (0.0-3.0); HEMATOCRIT 40.7 % (36.0-47.0); HEMOGLOBIN 13.9 g/dl (12.0-15.5); LYMPH % 24.3 % (24.0-44.0); MEAN CORPUSCULAR HEMOGLOBIN 28.5 pg (27.0-33.0); MEAN CORPUSCULAR HGB CONC 34.2 g/dl (32.0-36.5); MEAN CORPUSCULAR VOLUME 83.4 fl (80.0-96.0); MONO # 1.1 10^3/uL (0.0-0.8); MONO % 9.1 % (2.0-8.0); NEUTROPHILS % 64.4 % (36.0-66.0); PLATELET COUNT, AUTOMATED 346 10^3/uL (150-450); RED BLOOD COUNT 4.88 10^6/uL (4.00-5.40); WHITE BLOOD COUNT 12.4 10^3/uL (4.0-10.0)
[2022-04-02 15:19] LABS: ALBUMIN 3.5 G/DL (3.2-5.2); ALKALINE PHOSPHATASE 133 U/L (46-116); ALT/SGPT 32 U/L (7.0-40); AST/SGOT 17 U/L (<34); BILIRUBIN,TOTAL 0.7 MG/DL (0.3-1.2); BLOOD UREA NITROGEN 12 MG/DL (9-23); CALCIUM LEVEL 9.6 MG/DL (8.5-10.1); CARBON DIOXIDE LEVEL 33 MMOL/L (20-31); CHLORIDE LEVEL 100 MMOL/L (98-107); CHOLESTEROL LEVEL 133 MG/DL (<200); CHOLESTEROL RISK RATIO 3.56 (<5); CREATININE FOR GFR 0.65 MG/DL (0.55-1.30); GLOMERULAR FILTRATION RATE > 60.0 (>51); GLUCOSE, FASTING 105 MG/DL (60-100); HDL CHOLESTEROL 37.3 MG/DL (>40); LDL CHOLESTEROL 80.1 MG/DL (<100); NON-HDL-C 96 MG/DL; POTASSIUM SERUM 3.4 MMOL/L (3.5-5.1); SODIUM LEVEL 139 MMOL/L (136-145); TOTAL PROTEIN 6.7 G/DL (5.7-8.2); TRIGLYCERIDES LEVEL 78 MG/DL (<150)
== END ==
LOC: M PLALAB 09:42
PROVIDERS: ATTEND Nurse Practitioner Family
DX: I10 Essential (primary) hypertension (principal)

== ENCOUNTER → 2022-08-27 | Outpatient (CLI) | payer BC ==
[2022-08-27 10:29] LABS: BASO % 0.3 % (0.0-1.0); EOS # 0.3 10^3/uL (0.0-0.5); EOS % 2.4 % (0.0-3.0); HEMATOCRIT 40.5 % (36.0-47.0); HEMOGLOBIN 13.7 g/dl (12.0-15.5); LYMPH # 3.1 10^3/uL (1.5-5.0); LYMPH % 23.5 % (24.0-44.0); MEAN CORPUSCULAR HEMOGLOBIN 28.6 pg (27.0-33.0); MEAN CORPUSCULAR HGB CONC 33.8 g/dl (32.0-36.5); MEAN CORPUSCULAR VOLUME 84.6 fl (80.0-96.0); MONO # 1.1 10^3/uL (0.0-0.8); MONO % 8.3 % (2.0-8.0); NEUTROPHILS # 8.5 10^3/uL (1.5-8.5); PLATELET COUNT, AUTOMATED 375 10^3/uL (150-450); RED BLOOD COUNT 4.79 10^6/uL (4.00-5.40); WHITE BLOOD COUNT 13.1 10^3/uL (4.0-10.0)
== END ==
LOC: M PLALAB 08:35
PROVIDERS: ATTEND Nurse Practitioner Family
DX: D72.829 Elevated white blood cell count, unspecified (principal)

== ENCOUNTER → 2023-09-26 | Outpatient (CLI) | payer BC, SELFPAY ==
[2023-09-26 07:21] LABS: BASO # 0.1 10^3/uL (0.0-0.2); BASO % 0.4 % (0.0-1.0); EOS # 0.2 10^3/uL (0.0-0.5); EOS % 1.9 % (0.0-3.0); HEMATOCRIT 36.8 % (36.0-47.0); HEMOGLOBIN 12.9 g/dl (12.0-15.5); LYMPH # 2.6 10^3/uL (1.5-5.0); LYMPH % 22.7 % (24.0-44.0); MEAN CORPUSCULAR HGB CONC 35.1 g/dl (32.0-36.5); MEAN CORPUSCULAR VOLUME 82.7 fl (80.0-96.0); MONO # 0.9 10^3/uL (0.0-0.8); MONO % 8.1 % (2.0-8.0); NEUTROPHILS # 7.6 10^3/uL (1.5-8.5); NEUTROPHILS % 66.5 % (36.0-66.0); PLATELET COUNT, AUTOMATED 389 10^3/uL (150-450); RED BLOOD COUNT 4.45 10^6/uL (4.00-5.40); WHITE BLOOD COUNT 11.5 10^3/uL (4.0-10.0)
[2023-09-26 07:46] LABS: ALBUMIN 3.3 G/DL (3.2-5.2); ALKALINE PHOSPHATASE 117 U/L (46-116); ALT/SGPT 24 U/L (7.0-40); AST/SGOT 10 U/L (<34); BILIRUBIN,TOTAL 0.5 MG/DL (0.3-1.2); BLOOD UREA NITROGEN 13 MG/DL (9-23); CALCIUM LEVEL 9.5 MG/DL (8.5-10.1); CARBON DIOXIDE LEVEL 30 MMOL/L (20-31); CHLORIDE LEVEL 102 MMOL/L (98-107); CHOLESTEROL LEVEL 167 MG/DL (<200); CHOLESTEROL RISK RATIO 4.73 (<5); GLOMERULAR FILTRATION RATE > 60.0 (>51); GLUCOSE, FASTING 100 MG/DL (60-100); HDL CHOLESTEROL 35.3 MG/DL (>40); LDL CHOLESTEROL 111.7 MG/DL (<100); NON-HDL-C 131.7 MG/DL; POTASSIUM SERUM 3.3 MMOL/L (3.5-5.1); SODIUM LEVEL 137 MMOL/L (136-145); TOTAL PROTEIN 6.3 G/DL (5.7-8.2); TRIGLYCERIDES LEVEL 100 MG/DL (<150)
== END ==
LOC: M LAB 06:44
PROVIDERS: ATTEND Nurse Practitioner Family
DX: I10 Essential (primary) hypertension (principal); E78.5 Hyperlipidemia, unspecified

== ENCOUNTER → 2023-09-26 | Outpatient (CLI) | payer BC, SELFPAY ==
[2023-09-26 07:20] LABS: BASO % 0.3 % (0.0-1.0); EOS # 0.2 10^3/uL (0.0-0.5); EOS % 1.9 % (0.0-3.0); HEMATOCRIT 37.1 % (36.0-47.0); HEMOGLOBIN 13.1 g/dl (12.0-15.5); LYMPH # 2.6 10^3/uL (1.5-5.0); LYMPH % 22.3 % (24.0-44.0); MEAN CORPUSCULAR HEMOGLOBIN 29.2 pg (27.0-33.0); MEAN CORPUSCULAR HGB CONC 35.3 g/dl (32.0-36.5); MEAN CORPUSCULAR VOLUME 82.6 fl (80.0-96.0); MONO % 8.5 % (2.0-8.0); NEUTROPHILS # 7.6 10^3/uL (1.5-8.5); NEUTROPHILS % 66.7 % (36.0-66.0); PLATELET COUNT, AUTOMATED 386 10^3/uL (150-450); RED BLOOD COUNT 4.49 10^6/uL (4.00-5.40); WHITE BLOOD COUNT 11.5 10^3/uL (4.0-10.0)
[2023-09-26 09:44] LABS: ALBUMIN 3.3 G/DL (3.2-5.2); ALKALINE PHOSPHATASE 117 U/L (46-116); ALT/SGPT 24 U/L (7.0-40); AST/SGOT 20 U/L (<34); BILIRUBIN,DIRECT 0.1 MG/DL (<0.4); BILIRUBIN,TOTAL 0.5 MG/DL (0.3-1.2); BLOOD UREA NITROGEN 13 MG/DL (9-23); CALCIUM LEVEL 9.5 MG/DL (8.5-10.1); CARBON DIOXIDE LEVEL 30 MMOL/L (20-31); CHLORIDE LEVEL 101 MMOL/L (98-107); CREATININE FOR GFR 0.49 MG/DL (0.55-1.30); GLOMERULAR FILTRATION RATE > 60.0 (>51); GLUCOSE, FASTING 93 MG/DL (60-100); PHOSPHORUS LEVEL 3.5 MG/DL (2.5-4.9); POTASSIUM SERUM 3.8 MMOL/L (3.5-5.1); SODIUM LEVEL 137 MMOL/L (136-145); TOTAL PROTEIN 6.3 G/DL (5.7-8.2)
[2023-09-26 09:52] LABS: HEPATITIS B SURFACE ANTIBODY POSITIVE (POSITIVE)
[2023-09-26 10:24] LABS: HEPATITIS C VIRUS ABY INDEX < 0.02 INDEX (<0.8)
[2023-09-26 10:50] LABS: HIV 1&2 SCREEN NEGATIVE (NEGATIVE)
== END ==
LOC: M LAB 06:42
PROVIDERS: ATTEND Nurse Practitioner Family
DX: L40.0 Psoriasis vulgaris (principal); Z79.899 Other long term (current) drug therapy; Z51.81 Encounter for therapeutic drug level monitoring

== ENCOUNTER → 2024-07-18 | Outpatient (CLI) | payer BC | LOC: M WUC 15:18 | PROVIDERS: ATTEND Nurse Practitioner Family | DX: M25.572 Pain in left ankle and joints of left foot (principal) ==

== ENCOUNTER → 2024-10-09 | Outpatient (CLI) | payer BC ==
[2024-10-09 07:44] LABS: BASO # 0.1 10^3/uL (0.0-0.2); BASO % 0.4 % (0.0-1.0); EOS # 0.3 10^3/uL (0.0-0.5); EOS % 2.3 % (0.0-3.0); LYMPH # 2.9 10^3/uL (1.5-5.0); LYMPH % 25.8 % (24.0-44.0); MONO # 0.9 10^3/uL (0.0-0.8); MONO % 7.8 % (2.0-8.0); NEUTROPHILS # 7.0 10^3/uL (1.5-8.5); NEUTROPHILS % 63.2 % (36.0-66.0); PLATELET COUNT, AUTOMATED 373 10^3/uL (150-450)
[2024-10-09 08:15] LABS: ALT/SGPT 26 U/L (7.0-40); AST/SGOT 15 U/L (<34); CALCIUM LEVEL 9.1 MG/DL (8.5-10.1); CARBON DIOXIDE LEVEL 30 MMOL/L (20-31); CHLORIDE LEVEL 101 MMOL/L (98-107); CREATININE FOR GFR 0.57 MG/DL (0.55-1.30); GLOMERULAR FILTRATION RATE > 90.0 (>51); PHOSPHORUS LEVEL 3.7 MG/DL (2.5-4.9); POTASSIUM SERUM 3.6 MMOL/L (3.5-5.1); SODIUM LEVEL 142 MMOL/L (136-145)
[2024-10-09 08:17] LABS: HEPATITIS B SURFACE ANTIBODY POSITIVE (POSITIVE)
[2024-10-09 08:42] LABS: HIV 1&2 SCREEN NEGATIVE (NEGATIVE)
[2024-10-09 08:49] LABS: HEPATITIS C VIRUS ABY INDEX < 0.02 INDEX (<0.8)
== END ==
LOC: M LAB 06:41
PROVIDERS: ATTEND Nurse Practitioner Family
DX: L40.0 Psoriasis vulgaris (principal); Z79.899 Other long term (current) drug therapy; Z51.81 Encounter for therapeutic drug level monitoring

== ENCOUNTER → 2024-10-09 | Outpatient (CLI) | payer BC ==
[2024-10-09 07:44] LABS: BASO # 0.1 10^3/uL (0.0-0.2); BASO % 0.4 % (0.0-1.0); EOS # 0.2 10^3/uL (0.0-0.5); EOS % 2.1 % (0.0-3.0); LYMPH # 2.8 10^3/uL (1.5-5.0); LYMPH % 25.0 % (24.0-44.0); MONO # 0.9 10^3/uL (0.0-0.8); MONO % 7.9 % (2.0-8.0); NEUTROPHILS # 7.3 10^3/uL (1.5-8.5); NEUTROPHILS % 64.2 % (36.0-66.0); PLATELET COUNT, AUTOMATED 368 10^3/uL (150-450)
[2024-10-09 08:15] LABS: ALT/SGPT 24 U/L (7.0-40); AST/SGOT 15 U/L (<34); CALCIUM LEVEL 9.1 MG/DL (8.5-10.1); CARBON DIOXIDE LEVEL 29 MMOL/L (20-31); CHLORIDE LEVEL 101 MMOL/L (98-107); CHOLESTEROL LEVEL 174 MG/DL (<200); CHOLESTEROL RISK RATIO 4.16 (<5); CREATININE FOR GFR 0.55 MG/DL (0.55-1.30); GLOMERULAR FILTRATION RATE > 90.0 (>51); LDL CHOLESTEROL 113.6 MG/DL (<100); NON-HDL-C 132.2 MG/DL; POTASSIUM SERUM 3.4 MMOL/L (3.5-5.1); SODIUM LEVEL 141 MMOL/L (136-145); TRIGLYCERIDES LEVEL 93 MG/DL (<150)
[2024-10-09 08:16] LABS: THYROID PEROXIDASE ANTIBODY < 28.0 U/ML (<60.0)
[2024-10-09 08:17] LABS: FREE T4 1.79 NG/DL (0.89-1.76)
== END ==
LOC: M LAB 06:39
PROVIDERS: ATTEND Nurse Practitioner Family
DX: I10 Essential (primary) hypertension (principal); E78.5 Hyperlipidemia, unspecified; E04.1 Nontoxic single thyroid nodule; L40.0 Psoriasis vulgaris; Z79.899 Other long term (current) drug therapy; Z51.81 Encounter for therapeutic drug level monitoring

== ENCOUNTER → 2024-10-24 | Outpatient (CLI) | payer BC | LOC: M RAD 15:10 | PROVIDERS: ATTEND Nurse Practitioner Family | DX: E04.1 Nontoxic single thyroid nodule (principal) ==

== ENCOUNTER → 2024-11-28 | Outpatient (CLI) | payer BC ==
[2024-11-28 17:46] LABS: FREE T4 2.83 NG/DL (0.89-1.76)
== END ==
LOC: M PLALAB 15:30
PROVIDERS: ATTEND Nurse Practitioner Family
DX: E05.00 Thyrotoxicosis with diffuse goiter without thyrotoxic crisis or storm (principal)

== ENCOUNTER → 2024-12-28 | Outpatient (CLI) | payer BC ==
[2024-12-28 10:50] VITALS: TEMP 97.3
[2024-12-28 11:55] VITALS: BP 147/69; O2SAT 99
[2024-12-28] MEDS: LIDOCAINE 1% MDV 20 ML VIAL SC SCH (12:31)
== END ==
LOC: M IRPRO 09:59
PROVIDERS: ATTEND Nurse Practitioner Family
DX: E04.1 Nontoxic single thyroid nodule (principal)

== ENCOUNTER → 2025-02-13 | Outpatient (CLI) | payer BC | LOC: M RAD 12:25 | PROVIDERS: ATTEND Nurse Practitioner Family | DX: E05.00 Thyrotoxicosis with diffuse goiter without thyrotoxic crisis or storm (principal) ==